=== PATIENT | female | born 1945 | race Caucasian/White ===

== ENCOUNTER 2018-12-08 09:40 | Emergency (ER) | payer MEDICARE, OTHER ==
[2018-12-08 09:49] VITALS: BP 157/74
--- NOTE | 2018-12-08 10:25 | ER Document Report ---
HPI - HPI Time Seen by Provider: 12/08/18 10:06 Pain Level: 0 Context: Patient is a 73-year-old female who presents to the emergency department with a inquiry for a staple removal. She was seen by [facility] week and a day ago for a fall. She had a full work-up and 3 lupe were placed to the right side of her head. She has multiple past medical problems. She is not currently taking any medications. Denies any fever, body aches, or any other symptoms. - CONSTITUTIONAL Constitutional: DENIES: Fever, Chills - EENT EENT: DENIES: Sore Throat, Congestion - NEURO Neurology: DENIES: Headache, Weakness, Vision blurred, Dizzinesss / Vertigo - CARDIOVASCULAR Cardiovascular: DENIES: Chest pain - RESPIRATORY Respiratory: DENIES: Trouble Breathing, Coughing - MUSCULOSKELETAL Musculoskeletal: DENIES: Extremity pain, Back Pain, Neck Pain - DERM Skin Color: Normal Skin Problems: Laceration - To head, healed with 3 lupe Past Medical History - General Information source: Patient - Social History Smoking Status: Never Smoker Family History: Reviewed & Not Pertinent Vertical Provider Document - CONSTITUTIONAL Agree With Documented VS: Yes Exam Limitations: No Limitations General Appearance: No Apparent Distress - INFECTION CONTROL TRAVEL OUTSIDE OF THE [place] IN LAST 30 DAYS: No - HEENT HEENT: Normocephalic - 3 lupe noted to right side of scalp right above ear. - NECK Neck: Normal Inspection - RESPIRATORY Respiratory: No Respiratory Distress - CARDIOVASCULAR Cardiovascular: Regular Rate - MUSCULOSKELETAL/EXTREMETIES Musculoskeletal/Extremeties: FROM - NEURO Level of Consciousness: Awake, Alert Motor/Sensory: No Motor Deficit, No Sensory Deficit - DERM Integumentary: Warm, Dry, No Rash, Laceration - Healed with 3 lupe noted Course - Re-evaluation Re-evalutation: 12/08/18 10:29 Patient's laceration site healed well. I do not suspect patient is septic. There is no cellulitis noted to the area. Lupe were removed by myself. Patient tolerated procedure well. Patient continued to speak about her chronic medical conditions. I have advised her that she needs to follow-up with her primary care provider so they can closely follow her, as here in the emergency department there is no way that we can monitor her progress with her chronic medical conditions. She is in agreement with this plan. No neurological deficits noted. I suspect patient has a psychological component to her chronic conditions. She will follow-up with her primary care provider. Verbal discharge instructions were given to the patient. They verbalized understanding. They are stable for discharge. - Vital Signs Vital signs: Temp Pulse Resp BP Pulse Ox 96.8 F L 78 16 157/74 H 99 12/08/18 09:48 12/08/18 09:48 12/08/18 09:48 12/08/18 09:48 12/08/18 09:48 Discharge - Discharge Clinical Impression: Removal of lupe Condition: Stable Disposition: HOME, SELF-CARE Additional Instructions: You were seen today in the emergency department for removal of your lupe. Your wound healed well. Please follow-up with your primary care provider in 3 to 5 days in regards to this visit. Referrals: LOCAL,NO [Primary Care Provider] - Follow up in 3-5 days
== END 2018-12-08 10:32 | disposition home or self-care (01) ==
LOC: ER 09:40
DX: S01.01XD Laceration without foreign body of scalp, subsequent encounter (principal); W19.XXXD Unspecified fall, subsequent encounter
CPT/HCPCS: 99281